=== PATIENT | female | born 1970 | race Caucasian/White ===

== ENCOUNTER 2020-09-22 08:06 | Outpatient (CLI) | payer BC | END 2020-09-22 08:07 | disposition home or self-care (01) | LOC: CSHMAMMO 08:06 | PROVIDERS: ATTEND Family Medicine | DX: Z12.31 Encounter for screening mammogram for malignant neoplasm of breast (principal) | CPT/HCPCS: 77063; 77067 ==

== ENCOUNTER 2021-09-25 08:07 | Outpatient (CLI) | payer BC | END 2021-09-25 08:08 | disposition home or self-care (01) | LOC: CSHMAMMO 08:07 | PROVIDERS: ATTEND Family Medicine | DX: Z12.31 Encounter for screening mammogram for malignant neoplasm of breast (principal) | CPT/HCPCS: 77063; 77067 ==

== ENCOUNTER 2022-09-28 07:49 | Outpatient (CLI) | payer BC | END 2022-09-28 07:50 | disposition home or self-care (01) | LOC: CSHMAMMO 07:49 | PROVIDERS: ATTEND Family Medicine | DX: Z12.31 Encounter for screening mammogram for malignant neoplasm of breast (principal); Z91.89 Other specified personal risk factors, not elsewhere classified | CPT/HCPCS: 77063; 77067 ==

== ENCOUNTER 2023-09-30 08:03 | Outpatient (CLI) | payer BC | END 2023-09-30 08:04 | disposition home or self-care (01) | LOC: CSHMAMMO 08:03 | PROVIDERS: ATTEND Family Medicine | DX: Z12.31 Encounter for screening mammogram for malignant neoplasm of breast (principal); Z91.89 Other specified personal risk factors, not elsewhere classified | CPT/HCPCS: 77063; 77067 ==